=== PATIENT | male | born 2005 ===

== ENCOUNTER 2023-04-27 14:15 | Emergency (ER) | payer BC ==
[2023-04-27] MEDS ORDERED: Lidocaine 1% with EPINEPHrine 1:100,000 50 ML MDV INFILT ONE (14:30)
== END 2023-04-27 17:52 | disposition home or self-care (01) ==
LOC: LB.ED 14:15
DX: S61.210A Laceration without foreign body of right index finger without damage to nail, initial encounter (principal); W25.XXXA Contact with sharp glass, initial encounter
CPT/HCPCS: 12001; 99283